=== PATIENT | male | born 2000 | race Caucasian/White ===

== ENCOUNTER 2023-01-05 21:08 | Emergency (ER) | payer SELFPAY ==
[~2023-01-05] VITALS: Ht 175.3 cm; Wt 87.0 kg
[2023-01-05 21:15] VITALS: BP 144/84
[2023-01-05] MEDS ORDERED: ACETAMINOPHEN 325MG TABLET PO ONE (23:15)
[2023-01-05] MEDS ORDERED: IBUP-2030 PO (23:29)
== END 2023-01-05 23:50 | disposition home or self-care (01) ==
LOC: ER 21:08
DX: R51.9 Headache, unspecified (principal); Z87.828 Personal history of other (healed) physical injury and trauma
CPT/HCPCS: 99284